=== PATIENT | male | born 1970 | race Caucasian/White ===

== ENCOUNTER 2017-05-22 19:09 | Emergency (ER) | payer OTHER ==
[~2017-05-22] VITALS: Ht 182.9 cm; Wt 79.5 kg
[2017-05-22 20:10] LABS: HEMATOCRIT 41.1 % (38.0-50.0); MCH 29.1 PG (29.0-34.0); MCHC 33.3 G/DL (30.0-36.0); MCV 87.4 FL (86-99); MEAN PLAT.VOLUME 9.4 uM^3 (9.0-12.4); PLATELET COUNT 215 K/uL (156-360); RBC DIS.WIDTH-CV 12.3 % (11.8-14.6); RBC DIS.WIDTH-SD 39.7 % (39-53); WHITE BLOOD COUNT 12.7 K/uL (4.1-10.2)
[2017-05-22 20:41] LABS: CHLORIDE 106 mEq/L (99-109); SODIUM 138 mEq/L (136-147)
[2017-05-22 20:42] LABS: GLUCOSE 107 mg/dL (70-99)
[2017-05-22 20:44] LABS: ANION GAP 9 MEQ/L (2-14)
[2017-05-22 20:46] LABS: GFR ESTIMATE (CALCULATED) > 59 mL/min/
[2017-05-22 20:47] LABS: UREA NITROGEN (BUN) 16 mg/dL (9-23)
[2017-05-22 20:49] LABS: CREATINE KINASE 480 IU/L (1-294); TOTAL CK 480 IU/L (1-294)
[2017-05-22 21:01] LABS: CK-MB 2.6 ng/mL (0.0-4.9)
[2017-05-22 22:32] VITALS: BP 123/84
== END 2017-05-22 22:35 | disposition home or self-care (01) ==
LOC: EME → EDBD 19:09 → EME 19:09
PROVIDERS: Emergency Medicine
DX: T50.991A Poisoning by other drugs, medicaments and biological substances, accidental (unintentional), initial encounter (principal)
CPT/HCPCS: 71010; 80048; 82550; 82553; 85027; 99281; 99285; J1630; J2250; J7030

== ENCOUNTER 2017-07-13 12:03 | Emergency (ER) | payer OTHER ==
[~2017-07-13] VITALS: Ht 167.6 cm; Wt 81.5 kg
[2017-07-13] MEDS ORDERED: TYLENOL WITH C1 EACH PO (13:30)
[2017-07-13] MEDS ORDERED: KEFLEX500 MG PO (13:30)
[2017-07-13 14:13] VITALS: BP 139/80
== END 2017-07-13 14:14 | disposition home or self-care (01) ==
LOC: EME 12:03
PROC: 3E0234Z Introduction of Serum, Toxoid and Vaccine into Muscle, Percutaneous Approach (ICD-10-PCS; principal; 2017-07-13)
DX: S61.213A Laceration without foreign body of left middle finger without damage to nail, initial encounter (principal); S62.637A Displaced fracture of distal phalanx of left little finger, initial encounter for closed fracture; W29.8XXA Contact with other powered hand tools and household machinery, initial encounter; Z23 Encounter for immunization; F17.200 Nicotine dependence, unspecified, uncomplicated
CPT/HCPCS: 73130; 99281; 99284